=== PATIENT | male | born 1990 | race American Indian/Alaskan Native ===

== ENCOUNTER 2021-05-17 21:28 | Emergency (ER) | payer SELFPAY ==
[2021-05-17 21:34] VITALS: BP 128/88
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
== END 2021-05-18 00:40 | disposition home or self-care (01) ==
LOC: ED 21:28
DX: S90.31XA Contusion of right foot, initial encounter (principal); X58.XXXA Exposure to other specified factors, initial encounter; Y93.89 Activity, other specified; Y92.89 Other specified places as the place of occurrence of the external cause; Y99.8 Other external cause status
CPT/HCPCS: 99283